=== PATIENT | male | born 1955 | race Caucasian/White ===

== ENCOUNTER → 2018-03-16 | Emergency (ER) | payer OTHER ==
[2018-03-16] MEDS: HYDROCHLOROTHIAZIDE 25 MG TAB PO (19:05)
== END | disposition home or self-care (01) ==
LOC: FTE 17:24
DX: I10 Essential (primary) hypertension (principal); F43.20 Adjustment disorder, unspecified
CPT/HCPCS: 93005; 99283-25

== ENCOUNTER 2018-08-26 15:40 | Emergency (ER) | payer OTHER ==
[2018-08-26 18:16] LABS: ADD MAN DIFF? NO
[2018-08-26 18:20] LABS: BASOPHIL # 0.1 10^3/ul (0.0-0.1); BASOPHILS % 0.5 % (0.0-2.0); EOSINOPHILS % 0.1 % (0.0-7.0); HEMATOCRIT 34.3 % (42.0-52.0); HEMOGLOBIN 11.6 g/dl (14.0-18.0); LYMPHOCYTES # 1.4 10^3/ul (0.8-2.9); LYMPHOCYTES % 13.1 % (15.0-51.0); MEAN CORPUSCULAR HEMOGLOBIN 30.5 pg (29.0-33.0); MEAN CORPUSCULAR HGB CONC 33.8 g/dl (32.0-37.0); MEAN CORPUSCULAR VOLUME 90.3 fl (82.0-101.0); MEAN PLATELET VOLUME 10.2 fl (7.4-10.4); MONOCYTE # 0.6 10^3/ul (0.3-0.9); NEUTROPHIL # 8.9 10^3/ul (1.6-7.5); PLATELET COUNT 272 10^3/UL (140-415); RED CELL DISTRIBUTION WIDTH 11.5 % (11.5-14.5)
[2018-08-26 18:35] LABS: INR 0.94; PROTIME 12.7 Sec (11.9-14.9)
[2018-08-26 18:36] LABS: PARTIAL THROMBOPLASTIN TIME 29.2 Sec (23.0-35.0)
[2018-08-26 18:39] LABS: ANION GAP 14 (5-13); BLOOD UREA NITROGEN 31 mg/dl (7-20); CALCIUM 9.5 mg/dl (8.4-10.2); CARBON DIOXIDE 24 mmol/L (21-31); CHLORIDE 101 mmol/L (97-110); CREATININE 2.23 mg/dl (0.61-1.24); Estimated GFR 30 mL/min (>60); GLUCOSE 101 mg/dl (70-220); POTASSIUM 4.5 mmol/L (3.5-5.1); SODIUM 139 mmol/L (135-144)
== END 2018-08-26 19:38 | disposition home or self-care (01) ==
LOC: E/R 15:40
DX: T83.098A Other mechanical complication of other urinary catheter, initial encounter (principal); E03.9 Hypothyroidism, unspecified; R31.9 Hematuria, unspecified; N18.9 Chronic kidney disease, unspecified; I12.9 Hypertensive chronic kidney disease with stage 1 through stage 4 chronic kidney disease, or unspecified chronic kidney disease; Y73.2 Prosthetic and other implants, materials and accessory gastroenterology and urology devices associated with adverse incidents
CPT/HCPCS: 36415; 80048; 85025; 85610; 85730; 86850; 86900; 86901; 99283

== ENCOUNTER 2018-10-26 10:51 | Emergency (ER) | payer OTHER | END 2018-10-26 11:55 | disposition home or self-care (01) | LOC: E/R 10:51 | DX: T83.038A Leakage of other urinary catheter, initial encounter (principal); I10 Essential (primary) hypertension; E03.9 Hypothyroidism, unspecified; Y73.2 Prosthetic and other implants, materials and accessory gastroenterology and urology devices associated with adverse incidents | CPT/HCPCS: 51702; 99283-25 ==

== ENCOUNTER 2019-01-03 10:33 | Inpatient (IN) | payer OTHER ==
[~2019-01-03 10:33] MED LIST: SEVOFLURANE 15 MIN
[2019-01-03] MEDS ORDERED: MIDAZOLAM 1 MG/ML 2 ML INJ (12:39)
[2019-01-03] MEDS ORDERED: ROCURONIUM 50 MG INJ (12:39)
[2019-01-03] MEDS ORDERED: PROPOFOL 20 ML (12:39)
[2019-01-03] MEDS ORDERED: FENTAnyl 50 MCG/ML VIAL (12:39)
[2019-01-03] MEDS ORDERED: PHENYLephrine (100 MCG/ML) 10ML SYG (13:27)
[2019-01-03] MEDS ORDERED: KETOROLAC 30 MG INJ (13:27)
[2019-01-03] MEDS ORDERED: DEXAMETHASONE 4 MG/ML 5 ML INJ (13:27)
[2019-01-03] MEDS ORDERED: ONDANSETRON 4 MG INJ (13:27)
[2019-01-03] MEDS ORDERED: METOCLOPRAMIDE 10 MG INJ (13:27)
[2019-01-03] MEDS ORDERED: EPHEDrine SULFATE 50 MG/5 ML SYG IV (13:30)
[2019-01-03] MEDS ORDERED: HYDROmorphONE 1 MG/5 ML IV SYRINGE IV ×3 (13:30)
[2019-01-03] MEDS ORDERED: hydrALAzine 20 MG INJ IV (13:30)
[2019-01-03] MEDS ORDERED: LABETALOL HCL 20MG INJ IV (13:30)
[2019-01-03] MEDS ORDERED: OXYCODONE/ACETAMINOPHEN (5/325) TAB PO (13:30)
[2019-01-03] MEDS ORDERED: METOCLOPRAMIDE 10 MG INJ IV (13:30)
[2019-01-03] MEDS ORDERED: FENTAnyl 50 MCG/ML VIAL IV ×2 (13:30)
[2019-01-03] MEDS ORDERED: GLYCOPYRROLATE 0.4 MG INJ (13:38)
[2019-01-03] MEDS ORDERED: NEOSTIGMINE 3 MG/3 ML SYRINGE (13:39)
[2019-01-03] MEDS ORDERED: MAGNESIUM HYDROXIDE 30ML CUP PO (14:00)
[2019-01-03] MEDS ORDERED: DOCUSATE SODIUM 100 MG CAP PO (14:00)
[2019-01-03] MEDS: FENTAnyl 50 MCG/ML VIAL IV (14:14)
[2019-01-03] MEDS: ONDANSETRON 4 MG INJ IV (14:16)
[2019-01-03] MEDS: LISINOPRIL 20 MG TAB PO (16:41)
[2019-01-03] MEDS: DEXTROSE 5%-0.45% NACL 1,000 ML IV (17:06)
[2019-01-03] MEDS: AMLODIPINE 2.5 MG TAB PO (17:07)
[2019-01-03] MEDS: CEFTRIAXONE 1 GM/NS 50 ML IVPB (17:08)
[2019-01-03] MEDS: FLUTICASONE 0.05% 16 GM NAS SPRAY NASAL ×2 (21:00→22:31)
[2019-01-04 05:18] LABS: ADD MAN DIFF? NO
[2019-01-04 05:30] LABS: WHITE BLOOD COUNT 11.7 10^3/ul (4.8-10.8)
[2019-01-04 05:30] LABS: BASOPHILS % 0.1 % (0.0-2.0); HEMATOCRIT 37.9 % (42.0-52.0); HEMOGLOBIN 12.8 g/dl (14.0-18.0); LYMPHOCYTES # 0.8 10^3/ul (0.8-2.9); MEAN CORPUSCULAR HGB CONC 33.8 g/dl (32.0-37.0); MEAN PLATELET VOLUME 11.1 fl (7.4-10.4); MONOCYTE # 0.1 10^3/ul (0.3-0.9); MONOCYTES % 0.9 % (0.0-11.0); NEUTROPHIL # 10.7 10^3/ul (1.6-7.5); NEUTROPHILS % 91.6 % (39.0-77.0); PLATELET COUNT 215 10^3/UL (140-415); RED BLOOD COUNT 4.26 10^6/ul (4.70-6.10); RED CELL DISTRIBUTION WIDTH 12.1 % (11.5-14.5)
[2019-01-04 05:41] LABS: PHOSPHORUS 3.4 mg/dl (2.5-4.9)
[2019-01-04 05:41] LABS: MAGNESIUM 2.1 mg/dl (1.7-2.5)
[2019-01-04] MEDS: CEFTRIAXONE 1 GM/NS 50 ML IVPB ×3 (07:56→16:58)
[2019-01-04] MEDS ORDERED: CEFTRIAXONE 1 GM INJ IVPB (09:00)
[2019-01-04] MEDS: LISINOPRIL 20 MG TAB PO (09:55)
[2019-01-04] MEDS: FLUTICASONE 0.05% 16 GM NAS SPRAY NASAL (09:56)
[2019-01-04] MEDS: AMLODIPINE 2.5 MG TAB PO (10:02)
[2019-01-04] MEDS: DEXTROSE 5%-0.45% NACL 1,000 ML IV (10:04)
[2019-01-04] MEDS: LEVOTHYROXINE 88 MCG TAB PO (10:11)
[2019-01-04] MEDS: DIPHENHYDRAMINE 25 MG CAP PO (11:18)
[2019-01-04 14:05] LABS: ANION GAP 10 (5-13); BLOOD UREA NITROGEN 29 mg/dl (7-20); CALCIUM 9.6 mg/dl (8.4-10.2); CARBON DIOXIDE 27 mmol/L (21-31); CHLORIDE 101 mmol/L (97-110); Estimated GFR 52 mL/min (>60); GLUCOSE 157 mg/dl (70-220); POTASSIUM 4.6 mmol/L (3.5-5.1); SODIUM 138 mmol/L (135-144)
[2019-01-04] MEDS ORDERED: AMLODIPINE 2.5 MG TAB PO (21:00)
== END 2019-01-04 20:45 | disposition home or self-care (01) | DRG 714 ==
LOC: REC 10:33 → MS1 16:49
PROVIDERS: Urology
PROC: 0VB08ZZ Excision of Prostate, Via Natural or Artificial Opening Endoscopic (ICD-10-PCS; principal; 2019-01-03 12:30)
DX: N40.1 Benign prostatic hyperplasia with lower urinary tract symptoms (principal); I10 Essential (primary) hypertension; E03.9 Hypothyroidism, unspecified; Z87.891 Personal history of nicotine dependence
CPT/HCPCS: 80048; 83735; 84100; 85025; 87086; 88305

== ENCOUNTER 2019-04-03 10:01 | Day surgery (SDC) | payer OTHER ==
[2019-04-03] MEDS ORDERED: LIDOCAINE 2% (SDV) 5 ML INJ (11:56)
[2019-04-03] MEDS ORDERED: PROPOFOL 40 ML (11:56)
== END 2019-04-04 08:47 | disposition home or self-care (01) ==
LOC: GIL 10:01
DX: Z12.11 Encounter for screening for malignant neoplasm of colon (principal); D12.5 Benign neoplasm of sigmoid colon; K64.8 Other hemorrhoids
CPT/HCPCS: 45380; 88305